=== PATIENT | male | born 1965 | race Hispanic/Latino ===

== ENCOUNTER 2023-11-04 09:29 | Emergency (ER) | payer OTHER ==
[2023-11-04] MEDS ORDERED: NA CHLORIDE 0.9% 500 ML ONE (09:55)
[2023-11-04 10:22] LABS: Absolute Basophils 0.1 K/uL (0-0.5); Absolute Eosinophils 0.1 K/uL (0-0.5); Absolute Lymphocytes (CBC) 1.7 K/uL (0.7-4.9); Absolute Monocytes 0.9 K/uL (0.1-1.3); Absolute Neutrophil 3.3 K/uL (1.8-8.0); Basophils % 0.9 % (0-1.3); Eosinophils % 1.2 % (0-4.4); Hematocrit 46.3 % (39.6-49.0); Hemoglobin 15.9 g/dL (13.6-17.9); Lymphocytes % 28.2 % (15.3-44.8); MCH 29.5 pg (27.0-35.0); MCHC 34.3 g/dL (32.0-36.0); MPV 8.9 fL (7.6-11.3); Monocytes % 15.2 % (3.3-12.3); Neutrophils % 54.5 % (41.7-73.7); Nucleated Red Blood Cells % 0.1 % (0-0); Platelets 219 thou/uL (152-406); RBC Red Blood Cell Count 5.38 M/uL (4.33-5.43); Red Cell Distribution Width 13.3 % (12.1-15.2); Specific Gravity < 1.005 (1.005-1.030); Urine Bilirubin NEGATIVE (Negative); Urine Blood Negative (Negative); Urine Clarity Clear (Clear); Urine Color Colorless (Yellow); Urine Glucose NEGATIVE (Negative); Urine Ketones NEGATIVE (Negative); Urine Microscopic Reflex YN NO UMIC; Urine Nitrite NEGATIVE (Negative); Urine Protein NEGATIVE (Negative); Urine Urobilinogen Normal (Normal); Urine pH 6.5 (5.0-7.0)
[2023-11-04 10:52] LABS: Albumin 3.9 g/dL (3.4-5.0); Albumin/Globulin Ratio 0.9 (1.1-1.8); Anion Gap 8.4 mEq/L (5.0-15.0); Bilirubin Total 0.7 mg/dL (0.2-1.0); Globulin 4.2 g/dL (2.3-3.5); Potassium 3.4 mEq/L (3.5-5.1); Protein, Total 8.1 g/dL (6.4-8.2); Troponin High Sensitivity 3.5 pg/mL (<58.9)
--- NOTE | 2023-11-04 11:24 | RAD REPORT ---
EXAM DESCRIPTION: CT - Abdomen Pelvis W Contrast - 11/04/2023 11:07 am CLINICAL HISTORY: ABD PAIN COMPARISON: Abdomen Pelvis W Contrast dated 02/27/2016 TECHNIQUE: Thin cut axial CT imaging of the abdomen and pelvis was performed following intravenous a dministration of 100 mL Isovue 300. Multiplanar reformats were generated and reviewed. All CT scans are performed using dose optimization technique as appropriate and may include automated exposure control or mA/KV adjustment according to patient size. FINDINGS: No suspicious findings in the lung bases. The liver demonstrates diffuse parenchymal hypoattenuation suggesting steatosis. Adrenal glands, sple en, and pancreas show no suspicious findings. Gallbladder and biliary tree are also without suspiciou s finding. Symmetric renal function is seen with no hydronephrosis or suspicious renal mass. 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 No dilated bowel loops or bowel wall thickening. No free air, free fluid or inflammatory stranding. N o hernia, mass or bulky lymphadenopathy. The urinary bladder is without significant finding. No suspicious bony findings. IMPRESSION: No acute intra-abdominal process. Stable findings including diffuse hepatic steatosis.
--- NOTE | 2023-11-04 11:48 | EDPHYS ---
Physician Documentation [facility] [place] Name: Garry Cash Age: 58 yrs Sex: Male : 1965 Arrival Date: 11/04/2023 Time: 09:29 Bed 14 Private MD: ED Physician Coleen Bhat HPI: 11/03 09:53 This 58 yrs old Male presents to ER via Ambulatory with complaints of sd2 Abdominal Pain. 09:53 58-year-old male presents with chief complaint of left-sided and right lower quadrant sd2 abdominal pain that started this past Thursday. He reports it was constant for the first few days and has improved somewhat. However, he went to his job today and was told due to his pain, that he should come to the ER. He was seen by his primary care doctor and started on medications for blood pressure, diabetes and high cholesterol yesterday. He is only started taking the blood pressure medication at this time. He denies any associated objective fevers or vomiting. He does endorse watery diarrhea as well as nausea. He has taken Pepto-Bismol with some relief as well. He denies any prior abdominal surgeries. His last colonoscopy was [address] Queen. He reports some "concerning areas" were removed at that time by him.. Historical: - Allergies: 09:41 No Known Allergies; iw - PMHx: 09:41 Diabetes mellitus; Hypertensive disorder; Hypercholesterolemia; iw - PSHx: 09:41 None; iw - Immunization history:: Adult Immunizations not up to date. - Infectious Disease History:: Denies. - Social history:: Smoking status: Patient reports the use of cigarette tobacco products, denies chronic smoking, but will smoke occasionally. ROS: 09:53 Constitutional: Negative for fever, chills, and weight loss, Eyes: Negative for injury, sd2 pain, redness, and discharge, Cardiovascular: Negative for chest pain, palpitations, and edema, Respiratory: Negative for shortness of breath, cough, wheezing. 09:53 : Negative for dysuria, frequency or hematuria. MS/Extremity: Negative for injury and deformity, Skin: Negative for injury, rash, and discoloration, Neuro: Negative for headache, numbness and tingling. 09:53 Abdomen/GI: Positive for abdominal pain, nausea, diarrhea, Negative for vomiting, black/tarry stool, rectal bleeding, Exam: 09:53 Constitutional: This is a well developed, well nourished patient who is awake, alert, sd2 and in no acute distress. Head/Face: Normocephalic, atraumatic. Eyes: EOMI, normal conjunctiva bilaterally Chest/axilla: Normal chest wall appearance and motion. Nontender with no deformity. Cardiovascular: Regular rate and rhythm with a normal S1 and S2. No gallops, murmurs, or rubs. 2+ distal pulses. Respiratory: Lungs have equal breath sounds bilaterally, clear to auscultation and percussion. No rales, rhonchi or wheezes noted. No increased work of breathing, no retractions or nasal flaring. Abdomen/GI: Soft, mild TTP of the L side of the abdomen, upper, mid and lower areas as well as RLQ, no rebound or guarding Back: No spinal tenderness. No costovertebral tenderness. Full range of motion. Skin: Warm, dry with normal turgor. Normal color with no rashes, no lesions, and no evidence of cellulitis. MS/ Extremity: Pulses equal, no cyanosis. Neurovascular intact. Full, normal range of motion. Psych: Awake, alert, with orientation to person, place and time. Behavior, mood, and affect are within normal limits. 10:34 ECG was reviewed by the Attending Physician. NSR, rate 88, no STEMI criteria, TWIs sd2 noted in inferior leads and V5, V6 Vital Signs: 09:40 BP 128 / 97; Pulse 102; Resp 16; Temp 98.2; Pulse Ox 98% ; Weight 95.25 kg; Height 5 iw ft. 6 in. ; Pain 5/10; 10:18 BP 127 / 92; Pulse 91; Resp 16; Pulse Ox 95% ; bp 11:19 BP 141 / 96; Pulse 85; Resp 16; Pulse Ox 95% ; bp 11:56 BP 137 / 85; Pulse 85; Resp 16; Pulse Ox 95% ; bp 09:40 Body Mass Index 33.89 (95.25 kg, 167.64 cm) iw 09:40 Pain Scale: Adult iw MDM: 09:43 Patient medically screened. sd2 09:53 Differential Diagnosis Gastritis, cholecystitis, pancreatitis, SBO, diverticulitis, sd2 kidney stone, appendicitis, UTI, dehydration, electrolyte abnormality among others. Data reviewed: vital signs, nurses notes. I considered the following discharge prescriptions or medication management in the emergency department pt declined. 11:47 Care significantly affected by the following chronic conditions: Diabetes, sd2 Hypertension. Counseling: I had a detailed discussion with the patient and/or guardian regarding the historical points, exam findings, and any diagnostic results supporting the discharge/admit diagnosis, lab results, radiology results, the need for outpatient follow up, to return to the emergency department if symptoms worsen or persist or if there are any questions or concerns that arise at home. ED course: Labs and imaging reviewed with no significant findings. The patient was given all results and we did discuss continued supportive care for his symptoms as well as need for outpatient follow-up. He will start his new diabetes and cholesterol medications in addition to the high blood pressure medication that he is already started today. He will continue to monitor his symptoms and stay well-hydrated. He verbalizes understanding of discharge plan and strict return precautions and is comfortable with this.. 11/03 09:52 Order name: CBC with Diff; Complete Time: 10:45 sd2 11/03 09:52 Order name: CMP; Complete Time: 10:53 sd2 11/03 09:52 Order name: Lipase; Complete Time: 10:53 sd2 11/03 09:52 Order name: Troponin High Sensitivity; Complete Time: 10:53 sd2 11/03 09:52 Order name: Urinalysis w/ reflexes; Complete Time: 10:45 sd2 11/03 09:52 Order name: CT Abd/Pelvis - IV Contrast Only; Complete Time: 11:32 sd2 11/03 09:52 Order name: EKG - Nurse/Tech; Complete Time: 10:19 sd2 Administered Medications: 10:13 Drug: NS 0.9% IV 500 ml IV at bolus once Route: IV; Rate: bolus; Site: right forearm; bp 11:58 Follow up: IV Status: Completed infusion; IV Intake: 500ml bp Disposition Summary: 11/04/23 11:48 Discharge Ordered Problem: new sd2 Symptoms: have improved sd2 Condition: Stable sd2 Diagnosis - Abdominal pain, Generalized sd2 - Diarrhea, unspecified sd2 Followup: sd2 - With: Private Physician - When: 2 - 3 days - Reason: Recheck today's complaints, Continuance of care, Re-evaluation by your physician Discharge Instructions: - Discharge Summary Sheet sd2 - Abdominal Pain, Adult sd2 - Diarrhea, Adult sd2 Forms: - Work release form bp - Medication Reconciliation Form sd2 - Antibiotic Education sd2 - Prescription Opioid Use sd2 - Patient Portal Instructions sd2 - Leadership Thank You Letter sd2 Signatures: Dispatcher [employer] Nicolasa Hernandez RN RN Lars Parra RN RN bp Dunlop, Stephanie, MD MD sd2 Corrections: (The following items were deleted from the chart) 09:41 09:41 Allergies: Tetanus Vaccines \\T\\ Toxoid; iw 09:53 09:52 CBC+H.LAB.BRZ ordered. EDMS EDMS 09:53 09:52 COMPREHENSIVE METABOLIC PANEL+C.LAB.BRZ ordered. EDMS EDMS 09:53 09:52 LIPASE+C.LAB.BRZ ordered. EDMS EDMS 09:53 09:52 Troponin High Sensitivity+C.LAB.BRZ ordered. EDMS EDMS 09:53 09:52 Urinalysis+U.LAB.BRZ ordered. EDMS EDMS
--- NOTE | 2023-11-04 11:48 | ER ---
Nurse's Notes [facility] [place] Name: Garry Cash Age: 58 yrs Sex: Male : 1965 Arrival Date: 11/04/2023 Time: 09:29 Bed 14 Private MD: Diagnosis: Abdominal pain, Generalized;Diarrhea, unspecified Presentation: 11/03 09:40 Chief complaint: Patient states: left sided abd pain since Thursday , pain now radiates iw to RLQ, + diarrhea, + nausea , no vomiting. Coronavirus screen: At this time, the client does not indicate any symptoms associated with coronavirus-19. Ebola Screen: Patient negative for fever greater than or equal to 101.5 degrees Fahrenheit, and additional compatible Ebola Virus Disease symptoms Patient denies exposure to infectious person. Patient denies travel to an Ebola-affected area in the 21 days before illness onset. No symptoms or risks identified at this time. Initial Sepsis Screen: Does the patient meet any 2 criteria? No. Patient's initial sepsis screen is negative. Does the patient have a suspected source of infection? No. Patient's initial sepsis screen is negative. Risk Assessment: Do you want to hurt yourself or someone else? Patient reports no desire to harm self or others. 09:40 Method Of Arrival: Ambulatory iw 09:40 Acuity: ADILENE 3 iw 11:58 Onset of symptoms is unknown. bp Triage Assessment: 09:49 General: Appears in no apparent distress. Behavior is cooperative, appropriate for age, bp anxious. Pain: Complains of pain in abdomen. GI: Abdomen is non-distended, Reports upper abdominal pain. : No signs and/or symptoms were reported regarding the genitourinary system. Historical: - Allergies: 09:41 No Known Allergies; iw - PMHx: 09:41 Diabetes mellitus; Hypertensive disorder; Hypercholesterolemia; iw - PSHx: 09:41 None; iw - Immunization history:: Adult Immunizations not up to date. - Infectious Disease History:: Denies. - Social history:: Smoking status: Patient reports the use of cigarette tobacco products, denies chronic smoking, but will smoke occasionally. Screenin:49 [facility] ED Fall Risk Assessment (Adult) History of falling in the last 3 months, bp including since admission No falls in past 3 months (0 pts). Abuse screen: Denies threats or abuse. Denies injuries from another. Nutritional screening: No deficits noted. Tuberculosis screening: No symptoms or risk factors identified. Assessment: 09:49 General: Appears in no apparent distress. Behavior is cooperative, appropriate for age, bp anxious. Pain: Complains of pain in abdomen. Neuro: Oriented to Appropriate for age. Cardiovascular: Rhythm is sinus tachycardia. Respiratory: No deficits noted. GI: Bowel sounds present X 4 quads. Abdomen is tender to palpation in left upper quadrant. : No signs and/or symptoms were reported regarding the genitourinary system. EENT: No deficits noted. 10:18 Reassessment: Patient appears in no apparent distress at this time. Patient is alert, bp oriented x 3, equal unlabored respirations, skin warm/dry/pink. 10:58 Reassessment: Patient appears in no apparent distress at this time. Patient is alert, bp oriented x 3, equal unlabored respirations, skin warm/dry/pink. 11:19 Reassessment: Patient appears in no apparent distress at this time. Patient is alert, bp oriented x 3, equal unlabored respirations, skin warm/dry/pink. Vital Signs: 09:40 BP 128 / 97; Pulse 102; Resp 16; Temp 98.2; Pulse Ox 98% ; Weight 95.25 kg; Height 5 iw ft. 6 in. ; Pain 5/10; 10:18 BP 127 / 92; Pulse 91; Resp 16; Pulse Ox 95% ; bp 11:19 BP 141 / 96; Pulse 85; Resp 16; Pulse Ox 95% ; bp 11:56 BP 137 / 85; Pulse 85; Resp 16; Pulse Ox 95% ; bp 09:40 Body Mass Index 33.89 (95.25 kg, 167.64 cm) iw 09:40 Pain Scale: Adult iw ED Course: 09:36 Patient arrived in ED. mg5 09:37 Coleen Bhat MD is Attending Physician. sd2 09:41 Triage completed. iw 09:41 Arm band placed on. iw 09:43 Lars Parra, MIKE is Primary Nurse. bp 09:49 Patient has correct armband on for positive identification. bp 10:13 Inserted saline lock: 22 gauge in right forearm, using aseptic technique. Blood bp collected. 10:19 CBC with Diff Sent. bp 10:19 CMP Sent. bp 10:19 Lipase Sent. bp 10:19 Troponin High Sensitivity Sent. bp 10:19 Urinalysis w/ reflexes Sent. bp 10:58 CT Abd/Pelvis - IV Contrast Only Sent. bp 11:08 CT Abd/Pelvis - IV Contrast Only In Process Unspecified. EDMS 11:57 No provider procedures requiring assistance completed. IV discontinued, intact, bp bleeding controlled, No redness/swelling at site. Pressure dressing applied. 11:58 Provided Education on: N/A. bp Administered Medications: 10:13 Drug: NS 0.9% IV 500 ml IV at bolus once Route: IV; Rate: bolus; Site: right forearm; bp 11:58 Follow up: IV Status: Completed infusion; IV Intake: 500ml bp Medication: 09:49 VIS not applicable for this client. bp Intake: 11:58 IV: 500ml; Total: 500ml. bp Outcome: 11:48 Discharge ordered by . sd2 11:57 Discharged to home ambulatory, with family, bp 11:57 Condition: stable 11:57 Discharge instructions given to patient, Instructed on discharge instructions, follow up and referral plans. medication usage, Demonstrated understanding of instructions, follow-up care, medications, Prescriptions given X 1, 12:15 Patient left the ED. ko1 Signatures: Dispatcher [employer] EDMS Nicolasa Raya RN RN iw Lars Parra RN Coleen Hopkins MD MD sd2 Oliver, Kathy RN RN ko1 Radha Harp mg5 Corrections: (The following items were deleted from the chart) 09:41 09:41 Allergies: Tetanus Vaccines \T\ Toxoid; [facility]
[2023-11-04 12:50] VITALS: BP 137/85; TEMP 98.2; O2SAT 95
--- NOTE | 2023-11-06 14:42 | EKG ---
Test Date: 2023-11-04 Test Time: 10:02:47 Audit Associate: BP MEASUREMENT RESULTS: Intervals: Rate: 88 [place]: 158 QRSD: 86 QT: 368 QTc: 445 [place]: P: 43 [place]: 158 QRS: 41 T: 2 INTERPRETIVE STATEMENTS: Normal sinus rhythm Nonspecific T wave abnormality Abnormal ECG Compared to ECG 02/18/2011 16:23:24 No significant changes Electronically Signed On 11-06-23 14:38:56 CDT by Regis Dugan
== END 2023-11-04 12:15 | disposition home or self-care (01) ==
LOC: ER 09:29
DX: R10.84 Generalized abdominal pain (principal); R19.7 Diarrhea, unspecified; F17.210 Nicotine dependence, cigarettes, uncomplicated
CPT/HCPCS: 85025; 36415; 81003; 84484; 83690; 80053; 74177; Q9967; J7040; 93005; 96360; 96361; 99284